=== PATIENT | male | born 1990 | race Two or more races ===

== ENCOUNTER 2017-08-22 01:07 | Emergency (ER) | payer OTHER ==
[~2017-08-22] VITALS: Ht 170.2 cm; Wt 77.1 kg
[2017-08-22] MEDS ORDERED: IBUPROFEN 600 MG TAB PO ONE (02:30)
[2017-08-22] MEDS ORDERED: CLINDAMYCIN HCL 150 MG CAP PO ONE (02:30)
[2017-08-22 03:53] VITALS: BP 109/89
== END 2017-08-22 04:57 | disposition home or self-care (01) ==
LOC: ER 01:07
DX: J03.90 Acute tonsillitis, unspecified (principal)
CPT/HCPCS: 36415; 86308